=== PATIENT | female | born 1980 | race Caucasian/White ===

== ENCOUNTER 2021-03-05 21:21 | Inpatient (IN) | payer MEDICAID ==
[~2021-03-05] VITALS: Ht 157.5 cm; Wt 57.3 kg
[2021-03-05 22:40] LABS: COVID AG,FIA SOURCE NASOPHARYNGEAL
[2021-03-06] MEDS ORDERED: HALOPERIDOL 5 MG TABLET PO PRN (07:45)
[2021-03-06] MEDS ORDERED: ZOLPIDEM TARTRATE 10 MG TABLET PO PRN (07:45)
[2021-03-06] MEDS ORDERED: LORazepam 2 MG TABLET PO PRN (07:45)
[2021-03-06 09:00] VITALS: BP 139/87
[2021-03-06] MEDS ORDERED: BENZOCAINE/MENTHOL LOZENGE PO PRN (09:45)
[2021-03-06] MEDS ORDERED: BACITRACIN 28 GM OINTMENT TP PRN (09:45)
[2021-03-06] MEDS ORDERED: LOPERAMIDE HCL 2 MG CAPSULE PO PRN (09:45)
[2021-03-06] MEDS ORDERED: ALBUTEROL SULFATE HFA 90 MCG/PUFF 8 GM INHALER IH PRN (09:45)
[2021-03-06] MEDS ORDERED: ONDANSETRON HCL 4 MG TABLET PO PRN (09:45)
[2021-03-06] MEDS ORDERED: MAG HYDROX/AL HYDROX/SIMETH ES 30 ML SUSPENSION UDCUP PO PRN (09:45)
[2021-03-06] MEDS ORDERED: DOCUSATE SODIUM 100 MG CAPSULE PO PRN (09:45)
[2021-03-06] MEDS ORDERED: OMEPRAZOLE 20 MG CAPSULE PO PRN (09:45)
[2021-03-06] MEDS ORDERED: CloNIDine HCL 0.1 MG TABLET PO PRN (09:45)
[2021-03-06] MEDS ORDERED: IBUPROFEN 600 MG TABLET PO PRN (09:45)
[2021-03-06] MEDS ORDERED: ACETAMINOPHEN 325 MG TABLET PO PRN (09:45)
[2021-03-06] MEDS ORDERED: PETROLATUM,WHITE 28 GM JELLY TP PRN (09:45)
[2021-03-06] MEDS ORDERED: MAGNESIUM HYDROXIDE SUSPENSION 30 ML UDCUP PO PRN (09:45)
[2021-03-06 16:24] VITALS: BP 119/78
[2021-03-07 09:11] VITALS: BP 116/64
[2021-03-07] MEDS: RisperiDONE 1 MG TABLET PO SCH ×2 (16:29→16:33)
[2021-03-07 16:40] VITALS: BP 115/73
[2021-03-08 08:36] VITALS: BP 115/72
[2021-03-08] MEDS: RisperiDONE 1 MG TABLET PO SCH (09:00)
[2021-03-08] MEDS ORDERED: RISP1TAB48 PO (13:12)
== END 2021-03-08 14:05 | disposition home or self-care (01) | DRG 750 ==
LOC: EMS 21:21 → 3EI 03-06 08:01
PROVIDERS: ADMIT Psychiatry & Neurology Psychiatry; ATTEND Psychiatry & Neurology Psychiatry
DX: F20.0 Paranoid schizophrenia (principal); Z59.0 Homelessness; F10.10 Alcohol abuse, uncomplicated; I16.0 Hypertensive urgency; F17.200 Nicotine dependence, unspecified, uncomplicated; I10 Essential (primary) hypertension; K59.00 Constipation, unspecified; Z20.822 Contact with and (suspected) exposure to COVID-19
CPT/HCPCS: 87426; 99285; Z7502; Z7610